=== PATIENT | female | born 2005 | race Caucasian/White ===

== ENCOUNTER 2024-03-11 07:45 | Emergency (ER) | payer OTHER, SELFPAY ==
[~2024-03-11] VITALS: Ht 162.6 cm; Wt 34.9 kg
[2024-03-11] MEDS: NS 1,000 ML IV ONE (08:57)
[2024-03-11] MEDS ORDERED: LORazepam 2 MG/ML 1ML VIAL IV PRN (09:00)
[2024-03-11 09:27] LABS: CPK CREATINE PHOSPHOKINASE 76 U/L (34-145)
[2024-03-11 09:29] LABS: HCG, SERUM QUALITATIVE NEGATIVE (NEGATIVE); PROLACTIN 8.16 NG/ML; VENOUS BASE EXCESS -0.8 (-2.0-2.0); VENOUS HCO3 21.9 MMOL/L (23.0-27.0); VENOUS O2 SATURATION 92.4 % (60.0-80.0); VENOUS PARTIAL PRESSURE CO2 31.2 mmHg (38.0-50.0); VENOUS PH 7.464 UNITS (7.330-7.430); VENOUS STANDARD HCO3 23.7 MMOL/L; VENOUS TOTAL CO2 22.9 MMOL/L (24.0-28.0)
[2024-03-11] MEDS: LORazepam 2 MG/ML 1ML VIAL IV STA (09:30)
[2024-03-11 09:34] LABS: PROCALCITONIN 0.05 ng/ml
[2024-03-11 09:51] LABS: ALBUMIN 4.3 G/DL (3.2-5.2); ALKALINE PHOSPHATASE 142 U/L (46-116); ALT/SGPT 21 U/L (7.0-40); AST/SGOT 19 U/L (<34); BILIRUBIN,DIRECT 0.3 MG/DL (<0.4); BILIRUBIN,TOTAL 0.7 MG/DL (0.3-1.2); BLOOD UREA NITROGEN < 5 MG/DL (9-23); CARBON DIOXIDE LEVEL 22 MMOL/L (20-31); CHLORIDE LEVEL 106 MMOL/L (98-107); CREATININE FOR GFR 0.66 MG/DL (0.55-1.30); GLUCOSE, FASTING 97 MG/DL (60-100); MAGNESIUM LEVEL 1.8 MG/DL (1.8-2.4); POTASSIUM SERUM 3.8 MMOL/L (3.5-5.1); SODIUM LEVEL 140 MMOL/L (136-145); TOTAL PROTEIN 8.1 G/DL (5.7-8.2)
[2024-03-11] MEDS ORDERED: HOME MED LIST COMPLETE! XX SCH (10:15)
[2024-03-11 10:24] LABS: BASO % 0.4 % (0.0-1.0); EOS % 0.2 % (0.0-3.0); HEMATOCRIT 30.1 % (36.0-47.0); HEMOGLOBIN 10.1 g/dl (12.0-15.5); LYMPH # 0.9 10^3/uL (1.5-5.0); LYMPH % 8.9 % (24.0-44.0); MEAN CORPUSCULAR HEMOGLOBIN 32.6 pg (27.0-33.0); MEAN CORPUSCULAR HGB CONC 33.6 g/dl (32.0-36.5); MEAN CORPUSCULAR VOLUME 97.1 fl (80.0-96.0); MONO # 0.7 10^3/uL (0.0-0.8); MONO % 6.5 % (2.0-8.0); NEUTROPHILS # 8.6 10^3/uL (1.5-8.5); NEUTROPHILS % 83.5 % (36.0-66.0); PLATELET COUNT, AUTOMATED 201 10^3/uL (150-450); WHITE BLOOD COUNT 10.3 10^3/uL (4.0-10.0)
[2024-03-11 11:10] LABS: APPEARANCE, URINE CLEAR (CLEAR); BACTERIA, URINE AUTO NEGATIVE (NEGATIVE); BILIRUBIN, URINE AUTO NEGATIVE (NEGATIVE); BLOOD, URINE BLOOD NEGATIVE (NEGATIVE); COLOR, URINE YELLOW (YELLOW); GLUCOSE, URINE (UA) AUTO NEGATIVE (NEGATIVE); KETONE, URINE AUTO NEGATIVE (NEGATIVE); LEUKOCYTE ESTERASE, URINE AUTO NEGATIVE (NEGATIVE); MUCUS, URINE SMALL (NEGATIVE); NITRITE, URINE AUTO NEGATIVE (NEGATIVE); PROTEIN, URINE AUTO NEGATIVE (NEGATIVE); RBC, URINE AUTO 0 /HPF (0-3); SPECIFIC GRAVITY URINE AUTO 1.009 (1.002-1.035); SQUAMOUS EPITHELIAL CELL UR AU 0 /HPF (0-6); UROBILINOGEN, URINE AUTO 0.2 mg/dL (0.0-2.0); WBC, URINE AUTO 0 /HPF (0-3)
[2024-03-11] MEDS ORDERED: KEPP250T5 PO (11:33)
[2024-03-11] MEDS: levETIRAcetam 250MG TABLET (KEPPRA) PO ONE (12:11)
[2024-03-11 12:28] VITALS: BP 106/63; TEMP 98; O2SAT 99
[2024-03-11 14:51] LABS: AMPHETAMINES LEVEL URINE NEGATIVE (NEGATIVE)
[2024-03-11 14:52] LABS: BARBITURATES URINE NEGATIVE (NEGATIVE); BENZODIAZEPINES URINE NEGATIVE (NEGATIVE); CANNABINOIDS URINE POSITIVE (NEGATIVE); COCAINE METABOLITE URINE NEGATIVE (NEGATIVE); METHADONE URINE NEGATIVE (NEGATIVE); OPIATES URINE NEGATIVE (NEGATIVE); PHENCYCLIDINE URINE NEGATIVE (NEGATIVE)
== END 2024-03-11 12:40 | disposition home or self-care (01) ==
LOC: M ED 07:45
DX: R56.9 Unspecified convulsions (principal); B34.8 Other viral infections of unspecified site; F32.A Depression, unspecified; F41.9 Anxiety disorder, unspecified; Z11.52 Encounter for screening for COVID-19
CPT/HCPCS: 71045; 80048; 80076; 80307; 81001; 82330; 82550; 82803; 83605; 83735; 84100; 84145; 84146; 84703; 85025; 87040; 87486; 87581; 87633; 87798; 93005; 93041; 96361; 96374; 99285; J2060